=== PATIENT | male | born 1940 | race Caucasian/White ===

== ENCOUNTER 2017-09-12 13:17 | Emergency (ER) | payer MEDICARE ==
[~2017-09-12] VITALS: Ht 180.3 cm; Wt 82.1 kg
[2017-09-12 14:40] LABS: ABSOLUTE BASOPHILS 0.1 thou/uL (0.0-0.2); ABSOLUTE MONOCYTES 0.9 thou/uL (0.0-1.2); ABSOLUTE NEUTROPHILS 4.5 thou/uL (1.6-8.1); BASOPHILS 0.8 %; EOSINOPHILS 0.4 %; HEMATOCRIT 34.4 % (42.0-52.0); HEMOGLOBIN 11.7 gm/dL (14.0-18.0); LYMPHOCYTES 15.6 %; MCH 29.3 pg (26.0-34.0); MCV 86.3 fL (80.0-100.0); MONOCYTES 13.9 %; MPV 8.1 fl. (7.2-11.1); NUCLEATED RBCS 0 /100WBC; PLATELET COUNT* 206 thou/uL (150-400); POLYS 69.3 %; RBC 3.98 mil/uL (4.50-6.00); RDW-CV 14.8 % (10.5-14.5); WBC 6.5 thou/uL (4.0-11.0)
[2017-09-12 14:43] LABS: CALCIUM 8.3 mg/dL (8.5-10.1); CREATININE 1.8 mg/dL (0.6-1.3); POTASSIUM 4.1 mmol/L (3.5-5.1)
[2017-09-12 14:47] LABS: INR 4.1; PROTIME 39.5 Seconds (9.20-11.50)
[2017-09-12 14:48] LABS: TOTAL PROTEIN 6.4 g/dL (6.4-8.2)
[2017-09-12 16:26] LABS: URINE BILIRUBIN NEGATIVE (Negative); URINE BLOOD NEGATIVE (Negative); URINE CLARITY CLEAR; URINE COLOR YELLOW; URINE GLUCOSE-RANDOM NEGATIVE (Negative); URINE KETONES NEGATIVE (Negative); URINE LEUKOCYTES-REFLEX NEGATIVE (Negative); URINE NITRITE-REFLEX NEGATIVE (Negative); URINE PROTEIN NEGATIVE (Negative); URINE SPECIFIC GRAVITY <= 1.005 (1.005-1.030)
[2017-09-12] MEDS ORDERED: ATORVASTATIN CA40 MG PO (16:30)
[2017-09-12] MEDS ORDERED: KEFLEX500 M1 PO (16:30)
[2017-09-12] MEDS ORDERED: UNICOMPLEX M TA1 TA1 PO (16:31)
[2017-09-12] MEDS ORDERED: TOPROL XL100 MG PO (16:31)
[2017-09-12] MEDS ORDERED: VASOTEC 2.5MG2.5 M1 PO (16:31)
[2017-09-12] MEDS ORDERED: METFORMIN HCL500 MG PO (16:31)
[2017-09-12 16:52] VITALS: BP 131/74
[2017-09-13] MEDS ORDERED: COUMADIN 2 MG TA2 M1 PO (20:29)
[2017-09-13] MEDS ORDERED: AMARYL2 MG PO (20:29)
[2017-11-14] MEDS ORDERED: COUMADIN 2 MG TA2 M1 PO (15:47)
[2017-11-14] MEDS ORDERED: HYDROCHLOROTHIA25 M2 PO (15:48)
[2017-11-14] MEDS ORDERED: PRESERVISION A1 EACH PO (15:48)
[2017-12-19] MEDS ORDERED: ENALAPRIL MALEA20 MG PO (10:06)
[2017-12-19] MEDS ORDERED: LOPRESSOR50 PO (10:07)
== END 2017-09-12 16:55 | disposition home or self-care (01) ==
LOC: M.ERS 13:17
PROVIDERS: Nurse Practitioner Family
DX: S30.1XXA Contusion of abdominal wall, initial encounter (principal); I10 Essential (primary) hypertension; E11.9 Type 2 diabetes mellitus without complications; E78.5 Hyperlipidemia, unspecified; M10.9 Gout, unspecified; I48.91 Unspecified atrial fibrillation; W19.XXXA Unspecified fall, initial encounter; Y93.89 Activity, other specified; Y92.89 Other specified places as the place of occurrence of the external cause; Y99.8 Other external cause status

== ENCOUNTER 2017-09-13 18:48 | Inpatient (IN) | payer MEDICARE ==
[~2017-09-13] VITALS: Ht 180.3 cm; Wt 87.1 kg
[~2017-09-13 18:48] MED LIST: ATORVASTATIN CA40 MG PO; KEFLEX500 M1 PO; METFORMIN HCL500 MG PO; TOPROL XL100 MG PO; UNICOMPLEX M TA1 TA1 PO; VASOTEC 2.5MG2.5 M1 PO
[2017-09-13 18:50] VITALS: BP 164/68
[2017-09-13 19:10] LABS: ABSOLUTE LYMPHOCYTES 0.9 thou/uL (0.8-5.3); ABSOLUTE MONOCYTES 0.4 thou/uL (0.0-1.2); ABSOLUTE NEUTROPHILS 6.8 thou/uL (1.6-8.1); BASOPHILS 0.5 %; EOSINOPHILS 0.3 %; HEMOGLOBIN 12.1 gm/dL (14.0-18.0); LYMPHOCYTES 10.9 %; MCH 29.3 pg (26.0-34.0); MCHC 33.7 g/dL (28.0-37.0); MONOCYTES 5.4 %; MPV 7.8 fl. (7.2-11.1); NUCLEATED RBCS 0 /100WBC; PLATELET COUNT* 217 thou/uL (150-400); POLYS 82.9 %; RBC 4.14 mil/uL (4.50-6.00); RDW-CV 14.9 % (10.5-14.5); WBC 8.2 thou/uL (4.0-11.0)
[2017-09-13 19:18] LABS: ANION GAP 9 mmol/L (7-16); BUN 21 mg/dL (7-18); CALCIUM 7.8 mg/dL (8.5-10.1); CHLORIDE 106 mmol/L (98-107); CO2 25 mmol/L (21-32); CREATININE 1.2 mg/dL (0.6-1.3); GLUCOSE 85 mg/dL (70-99); POTASSIUM 3.4 mmol/L (3.5-5.1); SODIUM 140 mmol/L (136-145)
[2017-09-13 19:19] LABS: INR 3.7; PROTIME 35.1 Seconds (9.20-11.50)
[2017-09-13 19:29] LABS: ALKALINE PHOSPHATASE 92 U/L (46-116); NT-PRO BRAIN NAT PEPTIDE 4215 pg/mL (<300); SGOT 44 U/L (15-37); SGPT 63 U/L (30-65); TOTAL BILIRUBIN 0.8 mg/dL (<0.1-1.0); TOTAL PROTEIN 6.4 g/dL (6.4-8.2); TROPONIN-I LEVEL <0.06 ng/mL (<0.06)
[2017-09-13 19:45] LABS: URINE BILIRUBIN NEGATIVE (Negative); URINE BLOOD NEGATIVE (Negative); URINE CLARITY CLEAR; URINE COLOR STRAW; URINE GLUCOSE-RANDOM NEGATIVE (Negative); URINE KETONES NEGATIVE (Negative); URINE LEUKOCYTES-REFLEX NEGATIVE (Negative); URINE NITRITE-REFLEX NEGATIVE (Negative); URINE PROTEIN NEGATIVE (Negative); URINE UROBILINOGEN 0.2 E.U./dl (0.2-1.0)
[2017-09-13] MEDS ORDERED: COUMADIN 2 MG TA2 M1 PO (20:29)
[2017-09-13] MEDS ORDERED: AMARYL2 MG PO (20:29)
[2017-09-13 23:30] VITALS: BP 91/36
[2017-09-14] VITALS (11 sets, daily range): BP systolic 93–132; BP diastolic 45–87
[2017-09-14 04:28] LABS: HEMATOCRIT 29.9 % (42.0-52.0); HEMOGLOBIN 10.4 gm/dL (14.0-18.0); MCH 29.6 pg (26.0-34.0); MCHC 34.9 g/dL (28.0-37.0); MCV 84.9 fL (80.0-100.0); MPV 8.3 fl. (7.2-11.1); RBC 3.53 mil/uL (4.50-6.00); RDW-CV 14.6 % (10.5-14.5); WBC 17.9 thou/uL (4.0-11.0)
[2017-09-14 04:37] LABS: ALBUMIN 2.4 g/dL (3.4-5.0); CREATININE 1.5 mg/dL (0.6-1.3); POTASSIUM 3.7 mmol/L (3.5-5.1); TOTAL BILIRUBIN 0.7 mg/dL (<0.1-1.0); TOTAL PROTEIN 4.9 g/dL (6.4-8.2)
--- NOTE | 2017-09-14 06:43 | NUR ---
ASSUMED CARE OF PT AT 2310 PT ALERT AND ORIENTED X4 VS AND ASSESSMENT STABLE ON BIPAP O2 SAT MID 90'S TO 100%. PT RUNNING AFIB IN THE 80'S. ASSISTED TO BED ORIENTED TO SURROUNDINGS ACCUCHECKS Q1H. AT 2320 BP 91/36 STOPPED CARDIZEM GTT PTS BP REMAINED IN THE IN THE RETURNED TO SBP ABOVE 100. PT SLEPT THROUGH THE NIGHT. WILL CONTINUE PLAN OF CARE.
--- NOTE | 2017-09-14 10:11 | EKG ---
[place] [address] ELECTROCARDIOGRAM REPORT Name: RAMINKOFI Sari Room: [address] IN [facility].#: [id number] Admission: 09/13/17 Attend Phys: Nilsa Esteban MD Discharge: Date of : 44 Report #: [id number] THIS REPORT FOR: //name// [facility] ED Test Date: 2017-09-13 Test Time: 19:11:45 Pat Name: KOFI FAUSTIN Department: Room: [facility] Gender: M Brusher And Shearer: FAITH Florian : 1940 Requested By: Justin Pulido Order Number: [id number] MD: Kwasi Sherwood Measurements Intervals [place] Rate: 128 P: 0 WV: 120 QRS: 51 QRSD: 116 T: 44 QT: 348 QTc: 508 Interpretive Statements atrial fibrillation Nonspecific intraventricular conduction delay Borderline low voltage, extremity leads No previous ECG available for comparison Electronically Signed On 09-14-2017 10:10:47 CDT by Kwasi Sherwood [email or web address] <ELECTRONICALLY SIGNED> By: Kwasi Sherwood MD, [facility] 09/14/17 1010 10 10 Kwasi Sherwood MD, FAC /EPI
--- NOTE | 2017-09-14 11:20 | NUR ---
INTERDISICPLINARY ROUNDS: MET WITH PT, /SHAW AND DTR/VENKATA TO DISCUSS HOME SITUATION/DC PLANNING. ANSWERED MOST QUESTIONS. PT HAD A FALL AT A [employer] ON SAT, THINKS NOW IT MAY HAVE BEEN RELATED TO 'LOW BS', WENT TO HOSPITAL IN [place] AND STAYED OVERNIGHT THERE. CALLED PCP AND WENT TO ER MON FOR CT SCAN ON ABDOMEN FOR 'SORENESS' AND THEN RETURNED TO HOSPITAL IN [facility] WITH LOW BS, WAS SENT HERE D/T THEIR 'CT DOWN' PER . PT IS NORMALLY INDEPENDENT AND ACTIVE. HE USES NO EQUIPMENT, HASN'T HAD HH OR BEEN TO SNF. PLANS TO RETURN HOME AT DC. MULTIPLE BRUISES NOTED ON FACE, STATES FROM 'FALL'. WILL FOLLOW
--- NOTE | 2017-09-14 11:52 | NUR ---
ASSUMED CARE OF PATIENT THIS AM AT 0730. PATIENT IS ALERT AND ORIENTED X 4. HE DENIES PAIN THIS AM. PATIENT ON BIPAP EARLY THIS AM. DR WALKER IN TO ROUND AND ORDERS GIVEN TO REMOVE BIPAP AND PLACE ON NC. PATIENT ALSO STARTED ON A DIET AND ORDERS TO TRANSFER TO TELE FLOOR WERE GIVEN. PATIENT ASSISTED TO TURN Q 2 HR. HE HAS BEEN VOIDING PER URINAL. TELE SHOWS AFIB WITH A RATE OF 90 TO 100. PATIENT INSTRUCTED TO TCDB. FSBS MONITORED PER ORDER. BLOOD SUGAR RESULTS 80 TO 100. WILL CONTINUE TO MONITOR COMFORT.
[2017-09-15] VITALS (8 sets, daily range): BP systolic 102–154; BP diastolic 45–76
[2017-09-15 02:06] LABS: GLYCOHEMOGLOBIN (HGB A1C) 5.3 % (4.8-5.6)
[2017-09-15 04:13] LABS: ABSOLUTE EOSINOPHILS 0.1 thou/uL (0.0-0.7); ABSOLUTE LYMPHOCYTES 2.1 thou/uL (0.8-5.3); ABSOLUTE MONOCYTES 0.9 thou/uL (0.0-1.2); ABSOLUTE NEUTROPHILS 9.9 thou/uL (1.6-8.1); BASOPHILS 0.3 %; EOSINOPHILS 0.5 %; HEMATOCRIT 29.7 % (42.0-52.0); HEMOGLOBIN 10.1 gm/dL (14.0-18.0); LYMPHOCYTES 16.5 %; MCH 29.5 pg (26.0-34.0); MCHC 34.1 g/dL (28.0-37.0); MCV 86.4 fL (80.0-100.0); MONOCYTES 6.7 %; MPV 8.1 fl. (7.2-11.1); NUCLEATED RBCS 0 /100WBC; PLATELET COUNT* 174 thou/uL (150-400); RBC 3.43 mil/uL (4.50-6.00); RDW-CV 15.2 % (10.5-14.5)
[2017-09-15 04:31] LABS: PROTIME 28.6 Seconds (9.20-11.50)
[2017-09-15 04:34] LABS: CALCIUM 7.2 mg/dL (8.5-10.1); CREATININE 1.3 mg/dL (0.6-1.3); MAGNESIUM 1.5 mg/dL (1.8-2.4)
[2017-09-15 04:38] LABS: PREALBUMIN 13.6 mg/dL (18.0-35.7)
--- NOTE | 2017-09-15 06:18 | NUR ---
ASSUMED CARE OF PT AT 1900 PT ALERT AND ORIENTED X4 VS ASSESSMENT AND BLOOD GLUCOSE STABLE. PT AFIB ON THE MONITOR. DENIED ANY COMPLAINTS AND SLEPT THROUGH THE NIGHT. PT TO BE TRANSFERED TO THE TELE UNIT, REPORT GIVEN TO JAMES. WILL CONTINUE PLAN OF CARE.
--- NOTE | 2017-09-15 10:14 | NUR ---
ASSUMED RESPONSBILITY OF PT THIS AM PT IS ALERT AND ORIENTED HRIR AFIB NOTED LSCTA RESP EVEN AND NONLABORED BRUISES ALL OVER FROM PREVIOUS FALL PT WITH ACCUCHECKS HOSP. STATED PT COULD CONTROL WITH DIET NOW PT WITH 3 OUT OF 10 PAIN IN LOWER ABD BUT DIDN'T WANT ANYTHING FOR IT IV FLUIDS CONT WELL IV ABT SHOULD RESTART COUMADIN PER CARDIOLOGY AND HOSP. CALL LIGHT IN REACH CALLS OUT APPROPRIATELY SBA
--- NOTE | 2017-09-15 17:42 | CON ---
[address] [address] CONSULTATION Name: RAMINKOFI H Room: [address] IN .R.#: [id number] Admission: 09/13/17 Attend Phys: Nilsa Esteban MD Discharge: Date of : 44 Report #: [id number] THIS REPORT FOR: //name// CC: [facility] DATE OF SERVICE: 09/14/2017 HISTORY OF PRESENT ILLNESS: The patient is a 77-year-old white male who I was asked to see in the hospital today after he was noted to be in atrial fibrillation. The patient has an extensive past medical history. He apparently presented in 1996 with a cough. He was in [place], [place] at that time. He was diagnosed with pulmonary embolus. When he was admitted to the hospital, he was found to have coronary artery disease and eventually underwent triple vessel bypass surgery in [place], [place]. He apparently was followed by Dr. Turner for years here in [place]. However, I have actually followed the patient in [facility] for the past several years. I actually saw him in the office last fall and carotid Doppler study showed less than 70% stenosis, which was unchanged. He underwent a nuclear stress test in the fall for routine followup that showed a fixed apical defect, but no ischemia. At that time, he was noted to be in atrial fibrillation. I recommend stopping aspirin and he was started on warfarin. Since that time, he does have his INR checked frequently. He has had no bleeding problems. The patient stays fairly active and does go for walks. He denied recent chest pain, shortness of breath, palpitations. The patient apparently 5 days ago was at a movie with his . After the movie in which he slept through, he was walking down the stairs, missed a step and fell and hit his head. He was admitted to [facility]. He apparently had a CT scan of the head showed no acute abnormality. He was discharged the next day. He then went home. Last couple of days, he has not felt well. He felt somewhat distended, noted bruising of his abdomen and face. He had some loose stools, actually vomited yesterday. He was at home yesterday when he complained of abdominal discomfort and diarrhea and emesis, called and he was brought here to [facility] and admitted last night. On the monitor, he was noted to be in atrial fibrillation. I was asked to see him for further evaluation and treatment. PAST MEDICAL HISTORY: Otherwise is significant for appendectomy, eye surgery, diabetes, hypertension, hyperlipidemia. MEDICATIONS: Consists of Lipitor, enalapril, glimepiride, metformin, metoprolol, warfarin. ALLERGIES: He has no known drug allergies. FAMILY HISTORY: His [place] [address] CONSULTATION Name: KOFI FAUSTIN Room: [address] IN [facility]#: [id number] Admission: 09/13/17 Attend Phys: Nilsa Esteban MD Discharge: Date of : 44 Report #: [id number] SOCIAL HISTORY: He is . He and his live in the [place], [place]. No history of smoking or alcohol use. REVIEW OF SYSTEMS: He has had no stroke, asthma, peptic ulcer disease, liver disease, kidney disease, cancer, psychiatric illness, chronic skin condition. PHYSICAL EXAMINATION: GENERAL: Revealed an elderly, frail-appearing male who is lying in bed. He appeared in no acute distress. VITAL SIGNS: He had a blood pressure of 130/70, pulse is 100, last night he had temperature of 104. HEENT: Mucous members moist. He was anicteric. Conjunctivae pink. NECK: Veins nondistended. Neck was supple. No carotid bruits. CHEST: Clear to auscultation. CARDIOVASCULAR: Irregular rhythm. ABDOMEN: Soft. EXTREMITIES: Had no edema. No dorsalis pedis pulse palpated. SKIN: Cool and dry. NEUROLOGIC: Nonfocal. LYMPH: No adenopathy. MUSCULOSKELETAL: No joint effusion. LABORATORY DATA: His ECG showed atrial fibrillation with nonspecific ST and T-wave changes. His workup in the Emergency Room last night, he had a CT scan of the head. It showed evidence of previous infarction in the right christian area, old lacunar infarction, no hemorrhage. His chest x-ray showed cardiomegaly, interstitial edema, no effusion. Carotid Doppler study last April showed plaquing, stenosis 60-70% in the right internal carotid artery. His echocardiogram in May 2016 showed an ejection fraction of 50%, apical akinesia, left atrial enlargement, aortic sclerosis, mild mitral regurgitation. Nuclear stress test in April 2017, again evidence of previous apical infarction, no reversible ischemia. Ejection fraction preserved. He was found to be in atrial fibrillation. His lab work, sodium 141, creatinine 1.5. Liver function studies were normal. Albumin 2.4, troponin 0.06. INR on admission was 3.7. White blood cell count 17.9, hemoglobin 10.4. IMPRESSION AND RECOMMENDATIONS: 1. Atrial fibrillation. The patient has been on a beta barb. At this time, would add calcium barb for rate control. I would continue anticoagulation, maintain an INR of 2-3. 2. Hypertension. The patient has been on an AIDAN inhibitor, beta barb. 3. Coronary artery disease. Previous bypass surgery. Since the patient is on warfarin, I would not recommend aspirin. 4. Diabetes. 5. Hyperlipidemia. The patient is on [place] [address] CONSULTATION Name: KOFI FAUSTIN Room: [address] IN [facility].#: [id number] Admission: 09/13/17 Attend Phys: Nilsa Esteban MD Discharge: Date of : 44 Report #: [id number] 6. Carotid stenosis. Asymptomatic. 7. Anemia. No history of bleeding. <ELECTRONICALLY SIGNED> By: Kwasi Sherwood MD, FACC 09/15/17 1742 1356 1731Dluis Sherwood MD, FACC /nt
--- NOTE | 2017-09-15 18:14 | NUR ---
PT UP IN THE CHAIR HALF THE DAY DENIES ANY PAIN ALERT AND ORIENTED X3 WITH SOME FORGETFULNESS CALL LIGHT IN REACH FAMILY AT BEDSIDE T/O DAY
[2017-09-15 18:44] LABS: BE -7.1 mmol/L (-2 to +3); HCO3 18.2 mmol/L (22.0-26.0); PCO2 35.8 mmHg (35.0-45.0); PO2 78.1 mmHg (75.0-100.0); pH 7.323 (7.340-7.450)
[2017-09-16] VITALS: BP 115/61
--- NOTE | 2017-09-16 04:09 | NUR ---
PATIENT PROGRESSING TOWARDS GOALS: PATIENT'S BLOOD SUGAR REMAINS STABLE THROUGHOUT SHIFT. PATIENT TITRATED TO ROOM AIR AT BEGINNING OF SHIFT AND O2 SATS >92%. PATIENT DENIES PAIN AND DISCOMFORT. PATIENT REMAINS AFIB ON THE MONITOR, RATE CONTROLLED. HOURLY ROUNDING OBSERVED. CALL LIGHT WITHIN REACH
[2017-09-16 04:40] VITALS: BP 140/77
[2017-09-16 05:07] LABS: INR 1.8; PROTIME 17.8 Seconds (9.20-11.50)
--- NOTE | 2017-09-16 08:00 | NUR ---
ASSUMED CARE OF PT ASSESSED AND DOCUMENTED. PT IS ON CARDIAC MONITER TRACING AFIB HR 83. PT IS A&O WITH NO C/O PAIN. PT IS AFEBRILE. PT IS ON FALL RISK PER FACILITY PROTOCOL. BED IS IN LOW POSTION CALL LIGHT IS IN REACH. WM.
[2017-09-16 08:07] VITALS: BP 155/83
[2017-09-16 09:36] VITALS: BP 155/83
[2017-09-16 11:32] VITALS: BP 127/75
[2017-09-16] MEDS ORDERED: DOXYCYCLINE 10100 MG PO (11:40)
--- NOTE | 2017-09-16 18:46 | NUR ---
PT D/C'D TO HOME. ALL CONSULTS OK WITH D/C. EDUCATION GIVEN RE FOLLOWUPS, MEDICATIONS, AND DRS ORDERS. SCRIPT GIVEN, EDUCATION PRINTED AND REVIEWED WITH PT AND . D/C'D CARDIAC MONITER AND IV. ALL BELONGINGS PACKED UP AND LEFT WITH PT ACCOMPANID BY STAFF AND .
[2017-11-14] MEDS ORDERED: COUMADIN 2 MG TA2 M1 PO (15:47)
[2017-11-14] MEDS ORDERED: HYDROCHLOROTHIA25 M2 PO (15:48)
[2017-11-14] MEDS ORDERED: PRESERVISION A1 EACH PO (15:48)
[2017-12-19] MEDS ORDERED: ENALAPRIL MALEA20 MG PO (10:06)
[2017-12-19] MEDS ORDERED: LOPRESSOR50 PO (10:07)
== END 2017-09-16 18:54 | disposition home or self-care (01) | DRG 871 ==
LOC: M.ERS 18:48 → M.ICU 20:55 → M.TBA-ER 20:55 → M.ICU 22:16 → M.2W 09-15 06:53
PROVIDERS: Emergency Medicine; Family Medicine; Internal Medicine; Internal Medicine Cardiovascular Disease; ADMIT Internal Medicine
PROC: 5A09357 Assistance with Respiratory Ventilation, Less than 24 Consecutive Hours, Continuous Positive Airway Pressure (ICD-10-PCS; principal; 2017-09-14)
DX: A41.9 Sepsis, unspecified organism (principal); G93.40 Encephalopathy, unspecified; J96.01 Acute respiratory failure with hypoxia; J18.9 Pneumonia, unspecified organism; I50.31 Acute diastolic (congestive) heart failure; J81.1 Chronic pulmonary edema; E78.5 Hyperlipidemia, unspecified; M10.9 Gout, unspecified; I48.91 Unspecified atrial fibrillation; I65.21 Occlusion and stenosis of right carotid artery; D64.9 Anemia, unspecified; E11.649 Type 2 diabetes mellitus with hypoglycemia without coma; I25.10 Atherosclerotic heart disease of native coronary artery without angina pectoris; Z82.49 Family history of ischemic heart disease and other diseases of the circulatory system; Z90.49 Acquired absence of other specified parts of digestive tract; Z79.899 Other long term (current) drug therapy

== ENCOUNTER → 2017-09-23 | Outpatient (CLI) | payer MEDICARE ==
[~2017-09-23] MED LIST changes: +AMARYL2 MG PO; +COUMADIN 2 MG TA2 M1 PO; +DOXYCYCLINE 10100 MG PO; +ENALAPRIL MALEA20 MG PO; +HYDROCHLOROTHIA25 M2 PO; +HYDROCODON-ACE1 EAC7 PO; +LOPRESSOR50 PO; +PRESERVISION A1 EACH PO
[2017-09-23 09:37] LABS: INR 3.2; PROTIME 30.3 Seconds (9.20-11.50)
== END ==
LOC: M.LAB 09:01
PROVIDERS: Nurse Practitioner
DX: I48.1 Persistent atrial fibrillation (principal); I10 Essential (primary) hypertension; I34.0 Nonrheumatic mitral (valve) insufficiency; Z79.01 Long term (current) use of anticoagulants

== ENCOUNTER → 2017-10-10 | Outpatient (CLI) | payer MEDICARE ==
--- NOTE | 2017-10-10 11:42 | 2DMMODE ---
[place] [address] 2 D/M-MODE ECHOCARDIOGRAM Name: KOFI FAUSTIN Room: [facility]#: [id number] Admission: 10/10/17 Attend Phys: Kwasi Sherwood MD Discharge: Date of : 44 Date of Service: 10/10/17 1142 Report #: [id number] THIS REPORT FOR: //name// APPROVED REPORT Study performed: 10/10/2017 09:08:53 EXAM: Comprehensive 2D, Doppler, and color-flow Echocardiogram Patient Location: Out-Patient Status: routine BSA: 2.02 HR: 77 bpm BP: 128/72 mmHg Other Information Study Quality: Good Indications Murmur 2D Dimensions IVSd: 12.61 (7-11mm) LVOT Diam: 20.79 (18-24mm) LVDd: 49.81 mm PWd: 13.43 (7-11mm) Ascending Ao: 35.35 (22-36mm) LVDs: 41.57 (25-40mm) Aortic Root: 35.10 mm Volumes Left Atrial Volume (Systole) LA ESV Index: 39.50 mL/m2 Aortic Valve AoV Peak Herminio.: 1.65 m/s AO Peak Gr.: 10.89 mmHg LVOT Max P.09 mmHg AO Mean Gr.: 6.49 mmHg LVOT Mean P.93 mmHg LVOT Max V: 0.72 m/s AO V2 VTI: 33.11 cm LVOT Mean V: 0.44 m/s SANJEEV (VTI): 1.44 cm2 LVOT V1 VTI: 14.09 cm AI Obion: 2.41 m/s2 AI PHT: 499.54 ms Mitral Valve MV Decel. Time: 178.19 ms MV PHT: 51.67 [place] [address] 2 D/M-MODE ECHOCARDIOGRAM Name: KOFI FAUSTIN Room: [facility]#: [id number] Admission: 10/10/17 Attend Phys: Kwasi Sherwood MD Discharge: Date of : 44 Date of Service: 10/10/17 1142 Report #: [id number] MVA (PHT): 4.26 cm2 TDI Medial E' Herminio.: 0.10 m/s Lateral E' Herminio.: 0.13 m/s Pulmonary Valve PV Peak Herminio.: 0.67 m/s PV Peak Gr.: 1.81 mmHg Tricuspid Valve TR Peak Gr.: 26.35 mmHg RVSP: 31.35 mmHg Left Ventricle The left ventricle is normal size. apical akinesis Mild concentric left ventricular hypertrophy. Left ventricular systolic function is mildly decreased. LVEF is 40-45%. The left ventricular diastolic function is normal. Right Ventricle The right ventricle is normal size. The right ventricular systolic function is normal. Atria Left atrium is moderately dilated. Right atrium is mildly dilated. Aortic Valve Aortic valve is calcified. Mild to moderate aortic regurgitation. There is no aortic valvular stenosis. Mitral Valve The mitral valve is normal in structure. Mild mitral regurgitation. No evidence of mitral valve stenosis. Tricuspid Valve The tricuspid valve is normal in structure. Mild tricuspid regurgitation. The RVSP is __31.4 mmHg. Pulmonic Valve The pulmonary valve is normal in structure. Mild pulmonic regurgitation. Great Vessels The aortic root is normal in size. IVC is normal in size and collapses with >50% [place] [address] 2 D/M-MODE ECHOCARDIOGRAM Name: ENRIQUETA FAUSTINALD Sari Room: [facility]#: [id number] Admission: 10/10/17 Attend Phys: Kwasi Sherwood MD Discharge: Date of : 44 Date of Service: 10/10/17 1142 Report #: [id number] Pericardium There is no pericardial effusion. <Conclusion> apical akinesis LVEF is 40-45%. Left atrium is moderately dilated. Aortic valve is calcified. Mild mitral regurgitation. Mild to moderate aortic regurgitation. <ELECTRONICALLY SIGNED> By: Kwasi Sherwood MD, [facility] 10/10/17 1142 1142 114 Kwasi Sherwood MD, [facility] /INF
== END ==
LOC: M.CRD 08:54
DX: I08.0 Rheumatic disorders of both mitral and aortic valves (principal); I48.1 Persistent atrial fibrillation; I10 Essential (primary) hypertension

== ENCOUNTER 2017-12-21 07:56 | Inpatient (IN) | payer MEDICARE ==
[~2017-12-21] VITALS: Ht 152.4 cm; Wt 81.6 kg
[~2017-12-21 07:56] MED LIST changes: -HYDROCODON-ACE1 EAC7 PO
[2017-12-21 09:51] LABS: ABSOLUTE BASOPHILS 0.1 thou/uL (0.0-0.2); ABSOLUTE EOSINOPHILS 0.1 thou/uL (0.0-0.7); ABSOLUTE MONOCYTES 0.7 thou/uL (0.0-1.2); ABSOLUTE NEUTROPHILS 7.7 thou/uL (1.6-8.1); BASOPHILS 0.7 %; HEMATOCRIT 40.6 % (42.0-52.0); HEMOGLOBIN 13.5 gm/dL (14.0-18.0); LYMPHOCYTES 26.2 %; MCH 27.9 pg (26.0-34.0); MCHC 33.2 g/dL (28.0-37.0); MCV 84.1 fL (80.0-100.0); MONOCYTES 6.1 %; MPV 8.6 fl. (7.2-11.1); NUCLEATED RBCS 0 /100WBC; PLATELET COUNT* 219 thou/uL (150-400); RBC 4.83 mil/uL (4.50-6.00); RDW-CV 14.6 % (10.5-14.5); WBC 11.6 thou/uL (4.0-11.0)
[2017-12-21 09:55] LABS: CALCIUM 9.2 mg/dL (8.5-10.1); CREATININE 1.1 mg/dL (0.6-1.3); POTASSIUM 4.3 mmol/L (3.5-5.1)
[2017-12-21 10:36] VITALS: BP 121/57
--- NOTE | 2017-12-21 17:03 | NUR ---
PT ADMITTED FROM SURGERY. HISTORY AND ASSESSMENT COMPLETE. AFIB ON MONITOR. SURGERY SITE C/D/I. SOME BRUISING NOTED. ART LINE TO RUE. VOIDING PER URINAL. FALL PRECAUTIONS IN PLACE INCLUDING BED ALARM.
--- NOTE | 2017-12-21 18:44 | NUR ---
THIS NURSE IS IN AGREEMENT WITH [facility]CEPTEEBEATRIZ'S DOCUMENATION.
--- NOTE | 2017-12-21 22:30 | NUR ---
PT. BP MEDS HELD DUE TO LOW BP
[2017-12-22] VITALS (12 sets, daily range): BP systolic 102–128; BP diastolic 40–62
--- NOTE | 2017-12-22 04:50 | NUR ---
PT. PROGRESSING TOWARDS GOALS. RIGHT RADIAL ART LINE DC'D. BP'S SOFT BUT WNL. BP MEDS HELD BEGINNING SHIFT. URINAL TO VOID. WILL CONTINUE TO MONITOR.
--- NOTE | 2017-12-22 11:22 | NUR ---
I ASSUMED CARE OF THE PATIENT AT 0700. HE IS ALERT AND ORIENTED X4 AND IS UP WITH STAND BY ASSIST AND TRANSFERS WELL. HE IS UP TO THE CHAIR FOR BREAKFAST AND IS ABLE TO TRANSFER WELL. BED IS IN THE LOW LOCKED POSITION AND CALL LIGHT IS IN REACH. HOURLY ROUNDING WAS COMPLETED AND PATIENT NEEDS WERE MET. PAIN IS DENIED. HE IS PLEASANT AND ADVANCING TOWARD HIS GOALS. HE SHOULD DISCHARGE TODAY AFTER VASCULAR ROUNDS ON THE PATIENT. IS AT THE BEDSIDE AND HE ATE WELL. ALL VITALS ARE CHARTED AND BLOOD PRESSURE MEDS ARE TO BE RESTARTED TOMORROW. BLOOD PRESSURE MEDS WERE HELD TODAY. WILL CONTINUE TO MONITOR.
[2017-12-22] MEDS ORDERED: HYDROCODON-ACE1 EAC7 PO (12:59)
--- NOTE | 2017-12-22 14:10 | NUR ---
PT DISCHARGED HOME. COPY OF DISCHARGE PAPERWORK TO PT AND WITH EXPLAINATION. BOTH VERBALIZED UNDERSTANDING. PRESCRIPTION GIVEN TO PT . IV ACCESS X2 REMOVED.
--- NOTE | 2017-12-30 21:31 | OP ---
[facility] [address] [place] [address] OPERATIVE REPORT Name: KOFI FAUSTIN Room: [address]#: [id number] Admission: 12/21/17 Attend Phys: Sal Royal Discharge: 12/22/17 Date of : 44 Report #: [id number] THIS REPORT FOR: //name// CC: Physician staff SALENA Baron DATE OF SERVICE: 12/21/2017 PREOPERATIVE DIAGNOSIS: Asymptomatic high-grade right carotid artery stenosis. POSTOPERATIVE DIAGNOSIS: Asymptomatic high-grade right carotid artery stenosis. OPERATION: 1. Right carotid endarterectomy with bovine pericardial patch angioplasty. 2. Completion intraoperative duplex. SURGEON: Abdon Murdock DO. HIGH VOLTAGE ELECTRICIAN: Rojelio , ORT. ANESTHESIA: General. ESTIMATED BLOOD LOSS: 150 mL. FLUIDS: 800 crystalloid. URINE OUTPUT: None. SPECIMENS: Right carotid plaque. IMPLANTS: A 0.8 x 8 bovine pericardial patch on right carotid artery. COMPLICATIONS: None. FINDINGS: He had a heavily calcified 80% stenosis in the right carotid artery. This endarterectomized well. Completion intraoperative duplex demonstrated no intraluminal defects, good flow through the external and continuous diastolic flow through the internal carotid artery. He woke up neurologically intact. CLINICAL HISTORY: The patient is a 77-year-old man who was incidentally found to have asymptomatic high-grade right carotid artery stenosis. He was recommended for right carotid endarterectomy for stroke risk reduction. He was brought in today for the same. DESCRIPTION OF PROCEDURE: After informed consent was obtained, the patient was [facility] [address] [place] [address] OPERATIVE REPORT Name: KOFI FAUSTIN Room: [address]#: [id number] Admission: 12/21/17 Attend Phys: Sal Royal Discharge: 12/22/17 Date of : 44 Report #: [id number] taken to the operating room and placed on the OR bed in supine position, was administered general anesthesia by the Anesthesia Team. Right neck was prepped and draped in usual sterile fashion. Full timeout was performed identifying correct patient and procedure. Next, a longitudinal incision was made along the anterior border of the sternocleidomastoid. Dissection was carried down through skin and subcutaneous tissues both sharply and electrocautery. The patient's vein was identified, circumferentially mobilized, ligated between 2-0 silk ties and divided. The carotid sheath was entered. The jugular vein and vagus nerve were kept in a posterolateral position. I then dissected out the proximal common carotid arteries, circumferentially controlled this with umbilical tape and Juan Pablo tourniquet. I then dissected out the external carotid artery, controlled with Silastic vessel loops in Meeks fashion. I then dissected out the distal internal carotid and controlled this with Silastic vessel loop. At this point, I administered 8000 units of intravenous heparin. This was allowed to circulate for 3 minutes. I then sequentially clamped the internal carotid, followed by the external common carotid arteries. I then made a longitudinal arteriotomy, extended on with Meeks scissors the normal common and internal carotid arteries. I then placed a 12-Japanese [place] shunt in standard fashion. Doppler interrogation confirmed flow through the shunt. I then performed a standard endarterectomy with eversion endarterectomy of the external carotid artery, freed the bed of all intimal debris. Tapered to good distal intimal endpoint on the internal carotid artery, flushed with heparinized saline. I then performed a patch angioplasty with bovine pericardial patch with running 6-0 Prolene suture. Prior to completion of the suture line, the shunt was removed. The arteries were allowed to fore and backbleed and the artery was flushed with heparinized saline. I then completed the patch. We restored flow first up the external carotid artery after several heartbeats of the internal carotid artery. I then performed the completion intraoperative duplex. Again, this demonstrated no intraluminal defects and good flow through the external carotid and continuous diastolic flow through the internal carotid artery. Satisfied with the result, I then partially reversed the heparin with 50 mg protamine. Once hemostasis was ensured, the wound was irrigated with antibiotic solution and was closed in layers with 2-0 and 3-0 Vicryl, infiltrated Marcaine in the subcutaneous tissues, closed the skin with 4-0 Monocryl and Dermabond was applied. All sponge, sharp and instrument counts reported as correct x 2. He tolerated the procedure well and was transferred to recovery room in stable condition. <ELECTRONICALLY SIGNED> By: Abdon Murdock DO 12/30/17 2131 1320 1338Aabbe Murdock DO /nt
--- NOTE | 2018-01-10 10:07 | PATH ---
[address] [address] PATHOLOGY RPT PROCEDURE Name: KOFI DE LEÓN Room: [address] IN ..#: [id number] Admission: 12/21/17 Date of : 44 Discharge: 12/22/17 Report #: [id number] Path Case #: [id number] [facility] Accession Number: [id number] . 01 Material submitted: . RIGHT CAROTID PLAQUE . 01 Clinical history: . Right carotid artery stenosis . 02 Diagnosis: Right carotid plaque: - Fibrointimal atherosclerotic plaque with marked calcification. (ROC:mari; 12/23/2017) QMS/12/23/2017 . 02 Electronically signed: . Montrell Bolivar MD, Pathologist NPI- [id number] . 01 Gross description: . Received in formalin labeled "Kofi De León right carotid plaque," are multiple segments of pale yellow-lindquist rubbery soft tissue with attached dark brown, granular material measuring 2.5 x 2.3 x 1.0 cm in aggregate dimensions. Sectioning reveals partially calcified cut surfaces. The specimen is submitted representatively in cassette A1, following decalcification. (DAC; 12/22/2017) XDC/XDC . 02 Pathologist provided ICD-10: I65.21 . 02 CPT . 993868, [id number] Performed at: [address], [place] [id number] MD Brendan Fairchild MD Phone: [phone] Performed at: 02 [facility] [address], [place], [place] [id number] MD Montrell Bolivar MD Phone: [phone]
== END 2017-12-22 14:01 | disposition home or self-care (01) | DRG 38 ==
LOC: M.PRE 07:56 → M.TBA 09:13 → M.ICU 09:13 → M.PRE 10:04 → M.ICU 15:27
PROVIDERS: Surgery; ADMIT Internal Medicine
PROC: 03CM0ZZ Extirpation of Matter from Right External Carotid Artery, Open Approach (ICD-10-PCS; principal; 2017-12-21)
PROC: 03UM0KZ Supplement Right External Carotid Artery with Nonautologous Tissue Substitute, Open Approach (ICD-10-PCS; principal; 2017-12-21)
DX: I65.21 Occlusion and stenosis of right carotid artery (principal); D68.69 Other thrombophilia; I48.91 Unspecified atrial fibrillation; E11.9 Type 2 diabetes mellitus without complications; E78.5 Hyperlipidemia, unspecified; I10 Essential (primary) hypertension; Z95.1 Presence of aortocoronary bypass graft; Z79.01 Long term (current) use of anticoagulants; Z79.899 Other long term (current) drug therapy

== ENCOUNTER → 2018-05-02 | Outpatient (CLI) | payer MEDICARE ==
[~2018-05-02] MED LIST changes: +HYDROCODON-ACE1 EAC7 PO
--- NOTE | 2018-05-02 15:41 | 2DMMODE ---
[facility] [address] [place] [address] 2 D/M-MODE ECHOCARDIOGRAM Name: KOFI FAUSTIN Room: [facility]#: [id number] Admission: 05/02/18 Attend Phys: Kaylah Elena, Discharge: Date of : 44 Date of Service: 05/02/18 1540 Report #: [id number] THIS REPORT FOR: //name// APPROVED REPORT Study performed: 05/02/2018 13:48:00 EXAM: Limited 2D Echocardiogram Patient Location: Out-Patient Status: routine BSA: 2.02 HR: 78 bpm BP: 128/72 mmHg Other Information Study Quality: Good Indications Cardiomyopathy Left Ventricle Left ventricle is at the upper limits of normal. apical akinesis. no thrombus. There is normal left ventricular wall thickness. Left ventricular systolic function is mildly decreased. LVEF is 40-45%. Right Ventricle The right ventricle is normal size. Atria Left atrium is severely dilated. The right atrium size is normal. Aortic Valve The aortic valve is normal in structure. There is no aortic valvular stenosis. Mitral Valve The mitral valve is normal in structure. No evidence of mitral valve stenosis. <Conclusion> LVEF is 40-45%. [facility] [address] [place] [address] 2 D/M-MODE ECHOCARDIOGRAM Name: KOFI FAUSTIN Room: [facility]#: [id number] Admission: 05/02/18 Attend Phys: Kaylah Elena, Discharge: Date of : 44 Date of Service: 05/02/181539 Report #: [id number] apical akinesis. no thrombus. Left atrium is severely dilated. <ELECTRONICALLY SIGNED> By: Bruce Chavis MD, FACC 05/02/181539 39 39 Bruce Chavis MD, FACC /INF
== END ==
LOC: M.CRD 13:32
DX: I42.9 Cardiomyopathy, unspecified (principal)

== ENCOUNTER → 2019-12-20 | Outpatient (CLI) | payer MEDICARE | LOC: M.LAB 07:46 | PROVIDERS: ATTEND Internal Medicine Gastroenterology | DX: Z01.812 Encounter for preprocedural laboratory examination (principal); I25.10 Atherosclerotic heart disease of native coronary artery without angina pectoris; E87.6 Hypokalemia; Z86.010 Personal history of colon polyps; Z11.59 Encounter for screening for other viral diseases ==

== ENCOUNTER → 2020-04-09 | Outpatient (CLI) | payer MEDICARE ==
--- NOTE | 2020-04-09 15:11 | 2DMMODE ---
[place] [address] 2 D/M-MODE ECHOCARDIOGRAM Name: KOFI FAUSTIN Room: [facility]#: [id number] Admission: 04/09/20 Attend Phys: Kwasi Sherwood MD Discharge: Date of : 44 Date of Service: 04/09/20 1510 Report #: [id number] THIS REPORT FOR: cc: SALENA ECHAVARRIA RORI A. FNP Holkins, John M. MD [facility] ~ APPROVED REPORT Study performed: 04/09/2020 13:02:27 EXAM: Comprehensive 2D, Doppler, and color-flow Echocardiogram Patient Location: Out-Patient BSA: 1.93 HR: 92 bpm Other Information Study Quality: Good Indications CAD 2D Dimensions IVSd: 12.83 (7-11mm) LVOT Diam: 20.94 (18-24mm) LVDd: 52.18 mm PWd: 12.33 (7-11mm) Ascending Ao: 35.93 (22-36mm) LVDs: 31.06 (25-40mm) Aortic Root: 37.20 mm Volumes Left Atrial Volume (Systole) LA ESV Index: 44.30 mL/m2 Aortic Valve AoV Peak Herminio.: 2.03 m/s AO Peak Gr.: 16.53 mmHg LVOT Max P.48 mmHg AO Mean Gr.: 9.49 mmHg LVOT Mean P.73 mmHg LVOT Max V: 0.61 m/s AO V2 VTI: 29.72 cm LVOT Mean V: 0.39 m/s SANJEEV (VTI): 1.32 cm2 LVOT V1 VTI: 11.35 cm Mitral Valve MV Decel. Time: 162.96 [place] [address] 2 D/M-MODE ECHOCARDIOGRAM Name: KOFI FAUSTIN Room: [facility]#: [id number] Admission: 04/09/20 Attend Phys: Kwasi Sherwood MD Discharge: Date of : 44 Date of Service: 04/09/20 1510 Report #: [id number] MV PHT: 47.26 ms MVA (PHT): 4.66 cm2 TDI Medial E' Herminio.: 0.09 m/s Lateral E' Herminio.: 0.10 m/s Pulmonary Valve PV Peak Herminio.: 0.81 m/s PV Peak Gr.: 2.60 mmHg Tricuspid Valve RAP Estimate: 5.00 mmHg TR Peak Gr.: 24.62 mmHg RVSP: 29.62 mmHg PA Pressure: 29.62 mmHg Left Ventricle The left ventricle is normal size. There is a moderate sized akinetic apical segment. Mild concentric left ventricular hypertrophy. Left ventricular systolic function is moderately decreased. LVEF is 40-45%. This study is not technically sufficient to allow evaluation of the LV diastolic function due to atrial fibrillation. Right Ventricle The right ventricle is normal size. The right ventricular systolic function is normal. Atria Left atrium is moderately dilated. The right atrium size is normal. Aortic Valve Mild aortic valve sclerosis. Mild aortic regurgitation. No hemodynamically significant valvular aortic stenosis. Mitral Valve The mitral valve is normal in structure. There is no mitral valve regurgitation noted. No evidence of mitral valve stenosis. Tricuspid Valve The tricuspid valve is normal in structure. Mild tricuspid regurgitation. Pulmonic Valve The pulmonary valve is normal in structure. Trace to [place] [address] 2 D/M-MODE ECHOCARDIOGRAM Name: KOFI FAUSTIN Sari Room: [facility]#: [id number] Admission: 04/09/20 Attend Phys: Kwasi Sherwood MD Discharge: Date of : 44 Date of Service: 04/09/20 1510 Report #: [id number] Great Vessels The aortic root is normal in size. IVC is normal in size and collapses >50% with inspiration. Pericardium There is no pericardial effusion. <Conclusion> Mild concentric left ventricular hypertrophy. Left ventricular systolic function is moderately decreased. LVEF is 40-45%. This study is not technically sufficient to allow evaluation of the LV diastolic function due to atrial fibrillation. The right ventricle is normal size. Left atrium is moderately dilated. The right atrium size is normal. Mild aortic valve sclerosis. Mild aortic regurgitation. No hemodynamically significant valvular aortic stenosis. The mitral valve is normal in structure. The tricuspid valve is normal in structure. Mild tricuspid regurgitation. IVC is normal in size and collapses >50% with inspiration. There is no pericardial effusion. There is a moderate sized akinetic apical segment. The left ventricle is normal size. <ELECTRONICALLY SIGNED> By: Nestor Goldman MD, FACC 04/09/201509 09 09 Nestor Goldman MD, FACC /INF
== END ==
LOC: M.CRD 12:32
PROVIDERS: ATTEND Internal Medicine Cardiovascular Disease
DX: I08.8 Other rheumatic multiple valve diseases (principal); I25.10 Atherosclerotic heart disease of native coronary artery without angina pectoris